=== PATIENT | female | born 1995 | race Two or more races ===

== ENCOUNTER 2018-03-22 17:26 | Emergency (ER) | payer MEDICARE, MEDICAID ==
[~2018-03-22] VITALS: Ht 160 cm; Wt 69.9 kg
[~2018-03-22 17:26] MED LIST: CEPHALEXIN500 MG ORAL; NKM; TYLENOL325 MG ORAL; ZOFRAN4 MG ORAL; ZYPREXA7.5 MG ORAL
[2018-03-22 18:39] VITALS: BP_SYST 103; BP_SYST 108; BP_SYST 97; BP_DIAS 67; BP_DIAS 68; BP_DIAS 71
--- NOTE | 2018-03-22 19:20 | Emergency Room Report ---
History of Present Illness General Chief Complaint: General Complaint Source: Patient Present Illness HPI 23-year-old female presents to emergency department for evaluation of low blood pressure reading of 80/60 approximately one hour ago at her therapist's office. Patient reports repeat measurement was 90/70. Patient states that final repeat measurement when she stood up was 110 over something. Patient denies dizziness, syncope, lightheadedness, nausea or vomiting. Patient reports 3 out of 10 in severity generalized dull headache that was progressive. Patient denies she states she is currently on her menstrual cycle. Denies recent abdominal illness such as diarrhea. Denies new medications and does not have a significant past medical history. Denies CP, Palpitations, LOC, AMS, dizziness, Changes in Vision, Sensation, paresthesias, or a sudden severe headache. Denies Drug use. Pt. reports other than mild AGUILAR, she feels fine and has no other symptoms. Allergies: Coded Allergies: No Known Allergies (Unverified , 06/22/13) Patient History Past Medical History: see triage record Past Surgical History: none Pertinent Family History: none Now: No Reviewed Nursing Documentation: PMH: Agreed; PSxH: Agreed Nursing Documentation-PMH Past Medical History: No History, Except For Review of Systems All Other Systems: negative except mentioned in HPI Physical Exam Vital Signs Date Time Temp Pulse Resp B/P (MAP) Pulse Ox O2 Delivery O2 Flow Rate FiO2 03/22/18 17:39 98.4 82 18 117/82 98 Room Air 98.4 Sp02 EP Interpretation: reviewed, normal General Appearance: well appearing, no apparent distress, alert, GCS 15, non- toxic Head: normocephalic, atraumatic ENT: hearing grossly normal, normal voice Neck: full range of motion Respiratory: lungs clear, normal breath sounds, speaking full sentences Cardiovascular #1: regular rate, rhythm, normal capillary refill Musculoskeletal: back normal, gait/station normal, normal range of motion, non- tender Neurologic: alert, oriented x3, responsive, motor strength/tone normal, sensory intact, normal gait, speech normal, grossly normal Psychiatric: judgement/insight normal Skin: normal color, no rash, warm/dry, well hydrated Medical Decision Making PA Attestation Dr. Yu is my supervising Physician whom patient management has been discussed with. Diagnostic Impression: Primary Impression: Borderline low blood pressure determined by examination Additional Impression: Nonspecific low blood pressure reading ER Course 23-year-old female presents to emergency department for evaluation of low blood pressure reading of 80/60 approximately one hour ago at her therapist's office. Patient reports repeat measurement was 90/70. Patient states that final repeat measurement when she stood up was 110 over something. Patient denies dizziness, syncope, lightheadedness, nausea or vomiting. Patient reports 3 out of 10 in severity generalized dull headache that was progressive. Patient denies she states she is currently on her menstrual cycle. Denies recent abdominal illness such as diarrhea. Denies new medications and does not have a significant past medical history. Denies CP, Palpitations, LOC, AMS, dizziness, Changes in Vision, Sensation, paresthesias, or a sudden severe headache. Denies Drug use. Pt. reports other than mild AGUILAR, she feels fine and has no other symptoms. Ddx considered but are not limited to orthostatic hypotension, bradycardia, abnormal transient blood pressure reading. Anemia. Acute blood loss just to name a few Vital signs: are WNL, pt. is afebrile H&PE are most consistent with asymptomatic borderline low blood pressure reading. ORDERS: -Orthostatic vital signs: Negative for signs of orthostatic hypovolemia. Initial reading lying down was 108/71 with heart rate in 96, sitting was 103/68 with heart rate of 89, standing 97/67 with a heart rate of 103. There is no systolic change greater than 20, no diastolic change greater than 10. And no significant heart rate increase ED INTERVENTIONS: None required at this time. -Discussed with patient the results of her orthostatic vital sign measurements, encourage hydration and rest. Discussed the patient and she should follow up with her primary care provider or return to the emergency department with worsening or new symptoms. DISCHARGE: At this time pt. is stable for d/c to home. Will provide printed patient care instructions, and any necessary prescriptions. Care plan and follow up instructions have been discussed with the patient prior to discharge. Last Vital Signs Date Time Temp Pulse Resp B/P (MAP) Pulse Ox O2 Delivery O2 Flow Rate FiO2 03/22/18 18:39 96 108/71 89 103/68 103 97/67 03/22/18 17:39 98.4 18 98 Room Air 98.4 Disposition: HOME, SELF-CARE Condition: Stable Referrals: NOT CHOSEN IPA/MD,REFERRING (PCP) Patient Instructions: How to Take Your Blood Pressure, [id number] Additional Instructions: Take any previously prescribed medications as directed. Drink plenty of fluids, and remember to stay hydrated. Follow up with a Primary Care Provider in 3-5 days, even if your symptoms have resolved. --Please review list of primary care clinics, if you do not already have a primary care provider Return sooner to ED if new symptoms occur, or current symptoms become worse. - Please note that this Emergency Department Report was dictated using [employer] paral[employer] technology software, occasionally this can lead to erroneous entry secondary to interpretation by the dictation equipment. Alison Fuentes Mar 22, 2018 19:20
[2018-03-22 19:25] VITALS: BP 108/71
== END 2018-03-22 19:25 | disposition home or self-care (01) ==
LOC: EMR 18:05
DX: R03.1 Nonspecific low blood-pressure reading (principal)
CPT/HCPCS: 99282